=== PATIENT | female | born 1955 | race African-American/Black ===

== ENCOUNTER 2025-03-24 22:16 | Inpatient (IN) | payer MEDICAID ==
[~2025-03-24] VITALS: Ht 157.5 cm; Wt 66.2 kg
[2025-03-24] MEDS: SODIUM CHLORIDE 0.9% 1,000 ML IV ONE (23:27)
[2025-03-24] MEDS: SODIUM CHLORIDE 0.9% (SEPSIS BOLUS) IV ONE (23:29)
[2025-03-24] MEDS: PIPERACILLIN/TAZO 3.375G/50ML 50 ML IV ONE (23:29)
[2025-03-25] VITALS (94 sets, daily range): BP systolic 49–184; BP diastolic 25–114; PULSE 43–97; RESP 15–33; TEMP 35.028–37.8; O2SAT 46–100
[2025-03-25 00:02] LABS: BASOPHILS % 0.2 % (0.0-2.0); EOSINOPHILS % 0.0 % (0.0-5.0); HEMATOCRIT. 33.3 % (36.0-48.0); HEMOGLOBIN. 9.7 g/dL (12.0-16.0); LYMPHOCYTES % 12.3 % (20.0-50.0); MEAN PLATELET VOLUME 10.9 fl (7.4-10.4); MONOCYTES % 5.7 % (2.0-8.0); NEUTROPHILS % 81.8 % (40.0-76.0); PLATELET 213 x1000/uL (130-400); RED BLOOD CELL COUNT 3.37 mill/uL (4.2-5.4); RED CELL DISTRIBUTION WIDTH 17.9 % (11.6-14.6)
[2025-03-25] MEDS: VANCOMYCIN 1G PREMIX 200 ML IV ONE (00:08)
[2025-03-25 00:17] LABS: ASPARTATE AMINOTRANSFERASE 34 IU/L (<34); BILIRUBIN DIRECT 0.2 mg/dL (<=3.0)
[2025-03-25 00:18] LABS: BILIRUBIN TOTAL 0.5 mg/dL (0.1-1.0); PROTEIN TOTAL 7.1 g/dL (6.0-8.3)
[2025-03-25 00:19] LABS: BG BASE EXCESS -16.2 mmol/L (-2.0-3.0); BG CARBOXYHEMOGLOBIN 4.7 % (0.5-1.5); BG DEOXYHEMOGLOBIN 0.3 % (0.0-5.0); BG FLOW(L/min) 3.00 L/min; BG HCO3 ACT 8.7 mmol/L (21.0-28.0); BG METHEMOGLOBIN 0.3 % (0.5-1.5); BG OXYGEN SATURATION 99.7 % (94.0-98.0); BG OXYHEMOGLOBIN 94.7 % (94.0-98.0); BG PCO2 17.8 mmHg (32.0-45.0); BG PH 7.309 (7.350-7.450); BG PO2 190.5 mmHg (83.0-108.0); BG TOTAL HEMOGLOBIN 5.0 g/dL (12.0-16.0); BG VENT MODE NASAL CANNULA
[2025-03-25 00:25] LABS: CREATININE 10.9 mg/dL (0.6-1.0)
[2025-03-25 00:27] LABS: UREA NITROGEN BLOOD 191 mg/dL (9-23)
[2025-03-25 00:36] LABS: TROPONIN I HIGH SENSITIVITY 3313 ng/L (3.0-34)
[2025-03-25] MEDS: CALCIUM GLUCONATE 100MG/ML 10ML VIAL IV SCH (00:45)
[2025-03-25] MEDS: DEXTROSE 50% WATER 50ML SYRINGE IV SCH ×2 (00:48→03:17)
[2025-03-25] MEDS: INSULIN REGULAR (HUMULIN R) 1000UNITS/10ML VIAL IV SCH ×2 (00:51→03:18)
[2025-03-25] MEDS: SODIUM BICARBONATE 150 MEQ in DEXTROSE 5% WATER 850 ML IV SCH (00:55)
[2025-03-25] MEDS: SODIUM BICARBONATE 8.4% 50MEQ/50ML SYR IV SCH ×2 (00:57→03:18)
[2025-03-25] MEDS: SODIUM CHLORIDE 0.45% 1,000 ML IV ONE (00:59)
[2025-03-25] MEDS ORDERED: CLONIDINE 0.1MG TABLET PO PRN (01:00)
[2025-03-25] MEDS ORDERED: ONDANSETRON HCL 4MG/2ML INJ IV PRN (01:00)
[2025-03-25] MEDS ORDERED: SODIUM BICARBONATE 8.4% 50MEQ/50ML VIAL IV SCH (01:00)
[2025-03-25] MEDS ORDERED: DOCUSATE SODIUM 100MG CAPSULE PO PRN (01:00)
[2025-03-25] MEDS ORDERED: GUAIFENESIN 200MG/10ML SUGAR FREE UDC PO PRN (01:00)
[2025-03-25 01:24] LABS: TROPONIN I HIGH SENSITIVITY 3421 ng/L (3.0-34)
[2025-03-25] MEDS: ALBUTEROL (0.5%) 2.5MG/0.5ML NEB HHN SCH (01:34)
[2025-03-25] MEDS: NOREPINEPHRINE 8MG/250ML PMX 250 ML IV SCH (01:38)
[2025-03-25] MEDS: DEXTROSE 5% WATER 1,000 ML IV SCH (02:00)
[2025-03-25] MEDS: ASPIRIN 325MG EC TABLET PO SCH (02:00)
[2025-03-25] MEDS ORDERED: VECURONIUM BROMIDE 10 MG/VIAL IV SCH (02:00)
[2025-03-25] MEDS ORDERED: ETOMIDATE 2MG/ML 10ML VIAL IV SCH (02:00)
[2025-03-25] MEDS ORDERED: NITROGLYCERIN 0.4MG TABLET SL SL PRN (02:30)
[2025-03-25] MEDS ORDERED: EPINEPHRINE 5 MG in SODIUM CHLORIDE 0.9% 245 ML IV PRN (02:30)
[2025-03-25] MEDS: EPINEPHRINE 10 MG in SODIUM CHLORIDE 0.9% 240 ML IV PRN (02:50)
[2025-03-25] MEDS: LACTULOSE 20G/30ML UDC PO SCH (03:00)
[2025-03-25] MEDS ORDERED: HEPARIN 25,000 UNITS PREMIX 250 ML IV SCH ×2 (03:00)
[2025-03-25] MEDS: DOPAMINE 400MG/250ML PREMIX 250 ML IV PRN (03:17)
[2025-03-25 04:08] LABS: BG BASE EXCESS -8.4 mmol/L (-2.0-3.0); BG CARBOXYHEMOGLOBIN 1.4 % (0.5-1.5); BG DEOXYHEMOGLOBIN 0.3 % (0.0-5.0); BG FRACTION INSPIRED OXYGEN 100; BG HCO3 ACT 13.6 mmol/L (21.0-28.0); BG METHEMOGLOBIN 0.3 % (0.5-1.5); BG OXYGEN SATURATION 99.7 % (94.0-98.0); BG OXYHEMOGLOBIN 98.0 % (94.0-98.0); BG PCO2 19.7 mmHg (32.0-45.0); BG PEEP (cmH2O) 5.0 cmH2O; BG PH 7.458 (7.350-7.450); BG PO2 575.3 mmHg (83.0-108.0); BG SAMPLE SITE RIGHT RADIAL; BG TIDAL VOLUME(mL) 450.0 mL; BG TOTAL HEMOGLOBIN 10.5 g/dL (12.0-16.0); BG VENT MODE VENT - AC; BG VENT RATE 22.0 set
[2025-03-25] MEDS: HEPARIN 60 UNITS/KG BOLUS IV SCH (04:35)
[2025-03-25] MEDS: HEPARIN 25,000 UNITS PREMIX 250 ML IV SCH (04:39)
[2025-03-25] MEDS: HEPARIN SODIUM 1,000 UNIT/1ML VIAL IV SCH (05:04)
[2025-03-25] MEDS: PROPOFOL 10MG/ML 100ML 100 ML IV PRN (07:14)
[2025-03-25 07:40] LABS: CREATINE KINASE MB FRACTION 35.8 ng/mL (0.5-3.6)
[2025-03-25 08:07] LABS: CREATININE 10.3 mg/dL (0.6-1.0); UREA NITROGEN BLOOD 183.0 mg/dL (9-23)
[2025-03-25 08:10] LABS: TROPONIN I HIGH SENSITIVITY 5208.0 ng/L (3.0-34)
[2025-03-25] MEDS ORDERED: DEXTROSE 50% WATER 50ML SYRINGE IV PRN (08:15)
[2025-03-25] MEDS: PANTOPRAZOLE SODIUM 40 MG/VIAL IV SCH (08:35)
[2025-03-25] MEDS: BLOOD SUGAR DIAGNOSTIC STRIP TEST SCH ×2 (08:36→13:39)
[2025-03-25] MEDS: INSULIN LISPRO 100 UNITS/ML SUBCUT SCH ×2 (08:36→13:42)
[2025-03-25] MEDS: SODIUM CHLORIDE 0.45% 1,000 ML IV SCH (08:38)
[2025-03-25 08:47] LABS: CLARITY URINE TURBID (CLEAR); COLOR URINE ORANGE (YELLOW); GLUCOSE URINE 1+ (NEGATIVE); KETONES URINE NEGATIVE (NEGATIVE); LEUKOCYTE ESTERASE URINE 3+ (NEGATIVE); NITRITE URINE POSITIVE (NEGATIVE); OCCULT BLOOD URINE 3+ (NEGATIVE); PH URINE 7.0 (4.5-8.0); PROTEIN URINE 3+ (NEGATIVE); SPECIFIC GRAVITY URINE 1.015 (1.005-1.030); UROBILINOGEN URINE 0.2 E.U./dL (0.2-1.0)
[2025-03-25 08:47] LABS: HEPATITIS A AB IGM NEGATIVE (Negative)
[2025-03-25 08:48] LABS: HEPATITIS B CORE AB IGM NEGATIVE (Negative)
[2025-03-25 08:49] LABS: HEPATITIS C AB NON REACTIVE (Neg) (Negative)
[2025-03-25] MEDS ORDERED: CLOPIDOGREL 75MG TABLET PO SCH (09:00)
[2025-03-25] MEDS ORDERED: DOXYCYCLINE HYCLATE 100 MG/VIAL IV SCH (09:00)
[2025-03-25 09:07] LABS: *AMPHETAMINES SCREEN URINE NEGATIVE (NEGATIVE); *BARBITURATES SCREEN URINE NEGATIVE (NEGATIVE); *BENZODIAZEPINES SCREEN URINE NEGATIVE (NEGATIVE); *COCAINE SCREEN URINE NEGATIVE (NEGATIVE); METHADONE URINE SCREEN NEGATIVE (NEGATIVE)
[2025-03-25 09:08] LABS: CANNABINOID URINE SCREEN NEGATIVE (NEGATIVE); ECSTASY MDMA SCREEN URINE NEGATIVE (NEGATIVE); OPIATES URINE SCREEN NEGATIVE (NEGATIVE); PHENCYCLIDINE URINE SCREEN NEGATIVE (NEGATIVE)
[2025-03-25 09:10] LABS: BG BASE EXCESS -13.5 mmol/L (-2.0-3.0); BG CARBOXYHEMOGLOBIN 2.5 % (0.5-1.5); BG DEOXYHEMOGLOBIN 0.3 % (0.0-5.0); BG FRACTION INSPIRED OXYGEN 50; BG HCO3 ACT 10.6 mmol/L (21.0-28.0); BG METHEMOGLOBIN 0.2 % (0.5-1.5); BG OXYGEN SATURATION 99.7 % (94.0-98.0); BG OXYHEMOGLOBIN 97.0 % (94.0-98.0); BG PCO2 20.4 mmHg (32.0-45.0); BG PEEP (cmH2O) 5.0 cmH2O; BG PH 7.332 (7.350-7.450); BG PO2 253.4 mmHg (83.0-108.0); BG SAMPLE SITE LEFT RADIAL; BG TIDAL VOLUME(mL) 500.0 mL; BG TOTAL HEMOGLOBIN 10.4 g/dL (12.0-16.0); BG VENT MODE VENT - AC; BG VENT RATE 16.0 set
[2025-03-25] MEDS: EPINEPHRINE 20 MG in SODIUM CHLORIDE 0.9% 480 ML IV PRN (09:48)
[2025-03-25 09:56] LABS: WBC URINE TNTC /hpf (0-2)
[2025-03-25 09:57] LABS: BACTERIA URINE 4+; SQUAMOUS EPITHELIAL CELL URINE NONE SEEN /lpf (RARE/1+)
[2025-03-25 09:58] LABS: RBC URINE TNTC /hpf (0-2)
[2025-03-25] MEDS ORDERED: HEPARIN BOLUS PRN aPTT <30 IV (10:30)
[2025-03-25] MEDS ORDERED: HEPARIN BOLUS PRN aPTT 30-44 IV (10:30)
[2025-03-25] MEDS: PHENYLEPHRINE 50MG/250ML PMX 250 ML IV PRN (10:40)
[2025-03-25] MEDS ORDERED: PHENYLEPHRINE 50MG/250ML PMX 250 ML IV PRN (11:00)
[2025-03-25] MEDS: CALCIUM GLUCONATE 1GM PREMIX 50 ML IV NR (11:18)
[2025-03-25] MEDS: PIPERACILLIN/TAZO 3.375G/50ML 50 ML IV SCH (11:18)
[2025-03-25] MEDS: DOXYCYCLINE 100MG/100ML 100 ML IV SCH (11:18)
[2025-03-25 11:19] LABS: INR 1.2
[2025-03-25] MEDS ORDERED: VASOPRESSIN 20 UNIT in SODIUM CHLORIDE 0.9% 99 ML IV PRN (11:30)
[2025-03-25 11:43] LABS: CREATININE 6.8 mg/dL (0.6-1.0); UREA NITROGEN BLOOD 114.0 mg/dL (9-23)
[2025-03-25 11:47] LABS: TROPONIN I HIGH SENSITIVITY 11272 ng/L (3.0-34)
[2025-03-25] MEDS: INSULIN LISPRO 100 UNITS/ML SUBCUT NR (11:53)
[2025-03-25 13:40] LABS: TRIGLYCERIDE 137 mg/dL (0-150)
[2025-03-25 13:41] LABS: LDL CHOLESTEROL 53 mg/dL (5-100)
[2025-03-25] MEDS: KCL 20MEQ/100ML PREMIX 100 ML IV SCH (14:44)
[2025-03-25] MEDS: DEXTROSE 50% WATER 50ML SYRINGE IV PRN (18:45)
[2025-03-25 20:57] LABS: CREATINE KINASE MB FRACTION 35.3 ng/mL (0.5-3.6)
[2025-03-25 21:11] LABS: CREATININE 8.2 mg/dL (0.6-1.0); TROPONIN I HIGH SENSITIVITY 24546.0 ng/L (3.0-34); UREA NITROGEN BLOOD 141.0 mg/dL (9-23)
[2025-03-25] MEDS: ATORVASTATIN CALCIUM 40MG TABLET PO SCH (21:22)
[2025-03-25] MEDS: HYDROCORTISONE SOD SUCCINATE 100 MG/2 ML VIAL IV SCH (21:35)
[2025-03-25] MEDS: MIDAZOLAM 100MG/100ML PMX 100 ML IV PRN (23:14)
[2025-03-25] MEDS: FENTANYL 2500MCG/250ML PMX 250 ML IV PRN (23:14)
[2025-03-26] VITALS (104 sets, daily range): BP systolic 80–186; BP diastolic 56–122; PULSE 38–79; RESP 13–25; TEMP 36.1–37.1; O2SAT 96–100
[2025-03-26 05:54] LABS: PROTEIN TOTAL 6.2 g/dL (6.0-8.3); TRIGLYCERIDE 88 mg/dL (0-150)
[2025-03-26 05:55] LABS: LDL CHOLESTEROL 43 mg/dL (5-100)
[2025-03-26 05:56] LABS: ASPARTATE AMINOTRANSFERASE 78 IU/L (<34); BILIRUBIN DIRECT 0.3 mg/dL (<=3.0); PHOSPHORUS 3.3 mg/dL (2.5-4.9)
[2025-03-26 05:57] LABS: BILIRUBIN TOTAL 0.7 mg/dL (0.1-1.0)
[2025-03-26 06:20] LABS: T4 FREE < 0.10 ng/dL (0.89-1.76)
[2025-03-26 06:55] LABS: CREATININE 7.5 mg/dL (0.6-1.0); UREA NITROGEN BLOOD 125 mg/dL (9-23)
[2025-03-26 10:11] LABS: BASOPHILS % 0.1 % (0.0-2.0); EOSINOPHILS % 0.1 % (0.0-5.0); HEMATOCRIT. 32.7 % (36.0-48.0); HEMOGLOBIN. 10.1 g/dL (12.0-16.0); LYMPHOCYTES % 10.8 % (20.0-50.0); MEAN PLATELET VOLUME 10.1 fl (7.4-10.4); MONOCYTES % 2.7 % (2.0-8.0); NEUTROPHILS % 86.3 % (40.0-76.0); PLATELET 100 x1000/uL (130-400); RED BLOOD CELL COUNT 3.46 mill/uL (4.2-5.4); RED CELL DISTRIBUTION WIDTH 17.3 % (11.6-14.6)
[2025-03-26 10:32] LABS: TROPONIN I HIGH SENSITIVITY 16830 ng/L (3.0-34)
[2025-03-26] MEDS: EPINEPHRINE 10 MG in SODIUM CHLORIDE 0.9% 240 ML IV PRN (14:16)
[2025-03-26] MEDS ORDERED: HYDROCORTISONE SOD SUCCINATE 100 MG/2 ML VIAL IV SCH (16:00)
[2025-03-26] MEDS: LEVOTHYROXINE SODIUM 100 MCG/ VIAL IV NR (18:37)
[2025-03-27] VITALS (111 sets, daily range): BP systolic 75–153; BP diastolic 54–133; PULSE 51–96; RESP 5–21; TEMP 36.114–36.78072; O2SAT 98–100
[2025-03-27 06:01] LABS: BASOPHILS % 0.1 % (0.0-2.0); EOSINOPHILS % 0.1 % (0.0-5.0); HEMATOCRIT. 29.0 % (36.0-48.0); HEMOGLOBIN. 8.5 g/dL (12.0-16.0); LYMPHOCYTES % 9.3 % (20.0-50.0); MEAN PLATELET VOLUME 10.2 fl (7.4-10.4); MONOCYTES % 4.6 % (2.0-8.0); NEUTROPHILS % 85.9 % (40.0-76.0); PLATELET 101 x1000/uL (130-400); RED BLOOD CELL COUNT 2.96 mill/uL (4.2-5.4); RED CELL DISTRIBUTION WIDTH 16.8 % (11.6-14.6)
[2025-03-27 06:21] LABS: PHOSPHORUS 4.3 mg/dL (2.5-4.9)
[2025-03-27 07:07] LABS: CREATININE 6.2 mg/dL (0.6-1.0); UREA NITROGEN BLOOD 104 mg/dL (9-23)
[2025-03-27 07:08] LABS: TROPONIN I HIGH SENSITIVITY 5718 ng/L (3.0-34)
[2025-03-27] MEDS: LEVOTHYROXINE SODIUM 100 MCG/ VIAL IV SCH (08:58)
[2025-03-27 10:54] LABS: BG BASE EXCESS -12.7 mmol/L (-2.0-3.0); BG CARBOXYHEMOGLOBIN 2.3 % (0.5-1.5); BG DEOXYHEMOGLOBIN 0.3 % (0.0-5.0); BG FRACTION INSPIRED OXYGEN 40; BG HCO3 ACT 11.1 mmol/L (21.0-28.0); BG METHEMOGLOBIN 0.2 % (0.5-1.5); BG OXYGEN SATURATION 99.7 % (94.0-98.0); BG OXYHEMOGLOBIN 97.2 % (94.0-98.0); BG PCO2 19.3 mmHg (32.0-45.0); BG PEEP (cmH2O) 5.0 cmH2O; BG PH 7.376 (7.350-7.450); BG PO2 190.3 mmHg (83.0-108.0); BG SAMPLE SITE RIGHT BRACHIAL; BG TIDAL VOLUME(mL) 450.0 mL; BG TOTAL HEMOGLOBIN 7.5 g/dL (12.0-16.0); BG VENT MODE VENT - AC; BG VENT RATE 16.0 set
[2025-03-27] MEDS: SODIUM BICARBONATE 8.4% 50MEQ/50ML SYR IV SCH (11:16)
[2025-03-27] MEDS: CALCIUM GLUCONATE 1GM PREMIX 50 ML IV SCH (16:17)
[2025-03-27] MEDS ORDERED: VANCOMYCIN 750MG/150ML (BAXTER) IV SCH (18:00)
[2025-03-28] VITALS (113 sets, daily range): BP systolic 51–187; BP diastolic 38–141; PULSE 52–87; RESP 11–21; TEMP 36.2–36.5; O2SAT 97–100
[2025-03-28 06:09] LABS: HEMATOCRIT. 24.2 % (36.0-48.0); HEMOGLOBIN. 7.6 g/dL (12.0-16.0); MEAN PLATELET VOLUME 10.4 fl (7.4-10.4); PLATELET 93 x1000/uL (130-400); RED BLOOD CELL COUNT 2.67 mill/uL (4.2-5.4); RED CELL DISTRIBUTION WIDTH 15.9 % (11.6-14.6)
[2025-03-28 06:23] LABS: UREA NITROGEN BLOOD 70 mg/dL (9-23)
[2025-03-28 06:25] LABS: ASPARTATE AMINOTRANSFERASE 69 IU/L (<34); BILIRUBIN DIRECT 0.3 mg/dL (<=3.0); PHOSPHORUS 4.0 mg/dL (2.5-4.9)
[2025-03-28 06:26] LABS: BILIRUBIN TOTAL 0.5 mg/dL (0.1-1.0); PROTEIN TOTAL 5.5 g/dL (6.0-8.3)
[2025-03-28 06:27] LABS: CREATININE 4.0 mg/dL (0.6-1.0)
[2025-03-28] MEDS: KCL 20MEQ/100ML PREMIX 100 ML IV SCH (09:36)
[2025-03-28 10:37] LABS: BG BASE EXCESS -6.5 mmol/L (-2.0-3.0); BG CARBOXYHEMOGLOBIN 2.0 % (0.5-1.5); BG DEOXYHEMOGLOBIN 0.3 % (0.0-5.0); BG FRACTION INSPIRED OXYGEN 40; BG HCO3 ACT 14.4 mmol/L (21.0-28.0); BG METHEMOGLOBIN 0.2 % (0.5-1.5); BG OXYGEN SATURATION 99.7 % (94.0-98.0); BG OXYHEMOGLOBIN 97.5 % (94.0-98.0); BG PCO2 16.4 mmHg (32.0-45.0); BG PEEP (cmH2O) 5.0 cmH2O; BG PH 7.562 (7.350-7.450); BG PO2 176.7 mmHg (83.0-108.0); BG SAMPLE SITE RIGHT BRACHIAL; BG TIDAL VOLUME(mL) 450.0 mL; BG TOTAL HEMOGLOBIN 8.0 g/dL (12.0-16.0); BG VENT MODE VENT - AC; BG VENT RATE 16.0 set
[2025-03-28 11:40] LABS: BAND% 14.0 % (1.0-6.0); LYMPHOCYTES % MANUAL 7.0 % (20.0-60.0); METAMYELOCYTES % 4.0 % (0-0); MONOCYTES % MANUAL 2.0 % (2.0-8.0); NEUTROPHILS % MANUAL 73.0 % (45.0-75.0); PLATELET ESTIMATE SLIGHTLY DECREASED
[2025-03-28 14:36] LABS: BG BASE EXCESS -4.6 mmol/L (-2.0-3.0); BG CARBOXYHEMOGLOBIN 2.2 % (0.5-1.5); BG DEOXYHEMOGLOBIN 0.3 % (0.0-5.0); BG FRACTION INSPIRED OXYGEN 40; BG HCO3 ACT 18.5 mmol/L (21.0-28.0); BG METHEMOGLOBIN 0.2 % (0.5-1.5); BG OXYGEN SATURATION 99.7 % (94.0-98.0); BG OXYHEMOGLOBIN 97.3 % (94.0-98.0); BG PCO2 26.0 mmHg (32.0-45.0); BG PEEP (cmH2O) 5.0 cmH2O; BG PH 7.469 (7.350-7.450); BG PO2 159.7 mmHg (83.0-108.0); BG SAMPLE SITE RIGHT RADIAL; BG TIDAL VOLUME(mL) 400.0 mL; BG TOTAL HEMOGLOBIN 7.2 g/dL (12.0-16.0); BG VENT MODE VENT - AC; BG VENT RATE 12.0 set
[2025-03-29] VITALS (83 sets, daily range): BP systolic 57–132; BP diastolic 46–81; PULSE 62–101; RESP 15–36; TEMP 36.6–36.9; O2SAT 98–100
[2025-03-29 06:47] LABS: PLATELET 75 x1000/uL (130-400); RED BLOOD CELL COUNT 2.54 mill/uL (4.2-5.4); RED CELL DISTRIBUTION WIDTH 16.0 % (11.6-14.6)
[2025-03-29 07:01] LABS: CREATININE 3.8 mg/dL (0.6-1.0); UREA NITROGEN BLOOD 62 mg/dL (9-23)
[2025-03-29 07:03] LABS: PHOSPHORUS 4.2 mg/dL (2.5-4.9)
[2025-03-29] MEDS ORDERED: POTASSIUM CHLORIDE 20 MEQ in DEXT 5% WATER 90 ML IV ONE (07:30)
[2025-03-29 07:37] LABS: T4 FREE 1.06 ng/dL (0.89-1.76)
[2025-03-29] MEDS: KCL 20MEQ/100ML PREMIX 100 ML IV NR (08:38)
[2025-03-29] MEDS ORDERED: LEVOTHYROXINE SODIUM 100 MCG/ VIAL IV SCH (09:00)
[2025-03-29 09:17] LABS: BG BASE EXCESS -5.5 mmol/L (-2.0-3.0); BG CARBOXYHEMOGLOBIN 2.7 % (0.5-1.5); BG DEOXYHEMOGLOBIN 0.3 % (0.0-5.0); BG FRACTION INSPIRED OXYGEN 40; BG HCO3 ACT 16.3 mmol/L (21.0-28.0); BG METHEMOGLOBIN 0.3 % (0.5-1.5); BG OXYGEN SATURATION 99.7 % (94.0-98.0); BG OXYHEMOGLOBIN 96.7 % (94.0-98.0); BG PCO2 19.6 mmHg (32.0-45.0); BG PEEP (cmH2O) 5.0 cmH2O; BG PH 7.538 (7.350-7.450); BG PO2 177.9 mmHg (83.0-108.0); BG SAMPLE SITE RIGHT RADIAL; BG TIDAL VOLUME(mL) 400.0 mL; BG TOTAL HEMOGLOBIN 6.9 g/dL (12.0-16.0); BG VENT MODE VENT - AC; BG VENT RATE 12.0 set
[2025-03-29] MEDS: IPRATROPIUM/ALBUTEROL 0.5-3(2.5)MG/3ML NEB HHN PRN (10:02)
[2025-03-29] MEDS: LEVOTHYROXINE SODIUM 100 MCG/ VIAL IV SCH (11:02)
[2025-03-29] MEDS: NOREPINEPHRINE 8MG/250ML PMX 250 ML IV PRN (17:16)
[2025-03-29 18:10] LABS: BG BASE EXCESS -5.4 mmol/L (-2.0-3.0); BG CARBOXYHEMOGLOBIN 1.8 % (0.5-1.5); BG DEOXYHEMOGLOBIN 0.3 % (0.0-5.0); BG FRACTION INSPIRED OXYGEN 40; BG HCO3 ACT 16.4 mmol/L (21.0-28.0); BG METHEMOGLOBIN 0.2 % (0.5-1.5); BG OXYGEN SATURATION 99.7 % (94.0-98.0); BG OXYHEMOGLOBIN 97.7 % (94.0-98.0); BG PCO2 20.6 mmHg (32.0-45.0); BG PEEP (cmH2O) 5.0 cmH2O; BG PH 7.519 (7.350-7.450); BG PO2 176.9 mmHg (83.0-108.0); BG SAMPLE SITE RIGHT RADIAL; BG TIDAL VOLUME(mL) 400.0 mL; BG TOTAL HEMOGLOBIN 8.0 g/dL (12.0-16.0); BG TOTAL RESPIRATORY RATE 33 b/min; BG VENT MODE VENT - SIMV; BG VENT RATE 12.0 set
[2025-03-30] VITALS (107 sets, daily range): BP systolic 83–146; BP diastolic 56–86; PULSE 64–91; RESP 16–32; TEMP 35.4–37.1; O2SAT 96–100
[2025-03-30 06:44] LABS: PLATELET 73 x1000/uL (130-400); RED BLOOD CELL COUNT 2.64 mill/uL (4.2-5.4); RED CELL DISTRIBUTION WIDTH 16.4 % (11.6-14.6)
[2025-03-30 06:54] LABS: CREATININE 3.8 mg/dL (0.6-1.0)
[2025-03-30 06:55] LABS: UREA NITROGEN BLOOD 71 mg/dL (9-23)
[2025-03-30 06:57] LABS: PHOSPHORUS 4.1 mg/dL (2.5-4.9)
[2025-03-30] MEDS: KCL 20MEQ/100ML PREMIX 100 ML IV ONE (09:08)
[2025-03-30 09:18] LABS: BG BASE EXCESS -6.2 mmol/L (-2.0-3.0); BG CARBOXYHEMOGLOBIN 2.1 % (0.5-1.5); BG DEOXYHEMOGLOBIN 0.1 % (0.0-5.0); BG FRACTION INSPIRED OXYGEN 40; BG HCO3 ACT 16.0 mmol/L (21.0-28.0); BG METHEMOGLOBIN 0.3 % (0.5-1.5); BG OXYGEN SATURATION 99.9 % (94.0-98.0); BG OXYHEMOGLOBIN 97.5 % (94.0-98.0); BG PCO2 20.9 mmHg (32.0-45.0); BG PEEP (cmH2O) 5.0 cmH2O; BG PH 7.503 (7.350-7.450); BG PO2 167.2 mmHg (83.0-108.0); BG SAMPLE SITE RIGHT RADIAL; BG TIDAL VOLUME(mL) 400.0 mL; BG TOTAL HEMOGLOBIN 7.2 g/dL (12.0-16.0); BG VENT MODE VENT - SIMV; BG VENT RATE 12.0 set
[2025-03-30] MEDS: SODIUM BICARBONATE 8.4% 50MEQ/50ML SYR IV NR (11:04)
[2025-03-30] MEDS: POTASSIUM CHLORIDE 20MEQ/PACKET PO NR (11:04)
[2025-03-30] MEDS: FAMOTIDINE 20MG/2ML VIAL IV SCH (11:05)
[2025-03-30] MEDS: CALCIUM GLUCONATE 100MG/ML 10ML VIAL IV NR (15:26)
[2025-03-30] MEDS: KCL 20MEQ/100ML PREMIX 100 ML IV SCH (17:15)
[2025-03-30] MEDS: DEXTROSE 5% WATER 1,000 ML IV SCH (17:24)
[2025-03-30] MEDS: SENNOSIDES/DOCUSATE SOD 8.6/50MG TABLET NG SCH (20:40)
[2025-03-31] VITALS (105 sets, daily range): BP systolic 92–181; BP diastolic 64–87; PULSE 71–92; RESP 21–42; TEMP 36.6–37.2; O2SAT 75–100
[2025-03-31 07:58] LABS: BILIRUBIN TOTAL 0.4 mg/dL (0.1-1.0); CREATININE 3.2 mg/dL (0.6-1.0); UREA NITROGEN BLOOD 69 mg/dL (9-23)
[2025-03-31 08:00] LABS: ASPARTATE AMINOTRANSFERASE 109 IU/L (<34); BILIRUBIN DIRECT 0.2 mg/dL (<=3.0); PHOSPHORUS 3.1 mg/dL (2.5-4.9)
[2025-03-31 08:01] LABS: PROTEIN TOTAL 5.5 g/dL (6.0-8.3)
[2025-03-31 08:05] LABS: FOLIC ACID (FOLATE) SERUM 4.95 ng/mL (>5.38); VITAMIN B12 SERUM 569 pg/mL (211-911)
[2025-03-31 08:15] LABS: BASOPHILS % 0.1 % (0.0-2.0); EOSINOPHILS % 0.4 % (0.0-5.0); LYMPHOCYTES % 8.5 % (20.0-50.0); MEAN PLATELET VOLUME 10.3 fl (7.4-10.4); MONOCYTES % 3.6 % (2.0-8.0); NEUTROPHILS % 87.4 % (40.0-76.0); PLATELET 60 x1000/uL (130-400); RED BLOOD CELL COUNT 2.43 mill/uL (4.2-5.4); RED CELL DISTRIBUTION WIDTH 16.4 % (11.6-14.6)
[2025-03-31 08:33] LABS: HEMOGLOBIN. 7.0 g/dL (12.0-16.0)
[2025-03-31 08:35] LABS: HEMATOCRIT. 21.8 % (36.0-48.0)
[2025-03-31] MEDS: FOLIC ACID 1MG TABLET PO SCH (08:56)
[2025-03-31] MEDS: FAMOTIDINE 20MG/2ML VIAL IV SCH (08:58)
[2025-03-31] MEDS: SODIUM BICARBONATE 8.4% 50MEQ/50ML SYR IV NR (09:20)
[2025-03-31 09:58] LABS: SODIUM URINE RANDOM 42.0 mEq/L
[2025-03-31 10:05] LABS: CREATININE URINE RANDOM 52.2 mg/dL; UREA NITROGEN URINE RANDOM 553.0 mg/dL
[2025-03-31] MEDS ORDERED: METHYLPREDNISOLONE DOSE PACK XX SCH (12:00)
[2025-03-31] MEDS: IRON SUCROSE COMPLEX 100 MG/5 ML ML IV SCH (12:55)
[2025-03-31 13:07] LABS: BG BASE EXCESS -2.9 mmol/L (-2.0-3.0); BG CARBOXYHEMOGLOBIN 1.7 % (0.5-1.5); BG DEOXYHEMOGLOBIN 0.3 % (0.0-5.0); BG FLOW(L/min) 4.00 L/min; BG FRACTION INSPIRED OXYGEN 36; BG HCO3 ACT 18.9 mmol/L (21.0-28.0); BG METHEMOGLOBIN 0.2 % (0.5-1.5); BG OXYGEN SATURATION 99.7 % (94.0-98.0); BG OXYHEMOGLOBIN 97.8 % (94.0-98.0); BG PCO2 22.0 mmHg (32.0-45.0); BG PH 7.551 (7.350-7.450); BG PO2 185.8 mmHg (83.0-108.0); BG SAMPLE SITE RIGHT RADIAL; BG TOTAL HEMOGLOBIN 7.2 g/dL (12.0-16.0); BG VENT MODE NASAL CANNULA
[2025-03-31 13:12] LABS: BG PEEP (cmH2O) 5.0 cmH2O; BG TIDAL VOLUME(mL) 400.0 mL; BG VENT RATE 12.0 set
[2025-03-31 17:07] LABS: HEMATOCRIT. 21.8 % (36.0-48.0); MEAN PLATELET VOLUME 10.4 fl (7.4-10.4); PLATELET 73 x1000/uL (130-400); RED BLOOD CELL COUNT 2.34 mill/uL (4.2-5.4); RED CELL DISTRIBUTION WIDTH 16.9 % (11.6-14.6)
[2025-03-31 17:16] LABS: HEMOGLOBIN. 6.9 g/dL (12.0-16.0)
[2025-03-31 18:45] LABS: BAND% 20.0 % (1.0-6.0); LYMPHOCYTES % MANUAL 12.0 % (20.0-60.0); MONOCYTES % MANUAL 1.0 % (2.0-8.0); NEUTROPHILS % MANUAL 67.0 % (45.0-75.0); PLATELET ESTIMATE SLIGHTLY DECREASED
[2025-03-31] MEDS: CEFTRIAXONE 2GM/50ML 50 ML IV SCH (21:52)
[2025-04-01] VITALS (102 sets, daily range): BP systolic 95–152; BP diastolic 62–93; PULSE 62–84; RESP 14–34; TEMP 36.3–36.8; O2SAT 76–100
[2025-04-01 07:06] LABS: HEMATOCRIT. 26.0 % (36.0-48.0); HEMOGLOBIN. 8.6 g/dL (12.0-16.0); MEAN PLATELET VOLUME 10.8 fl (7.4-10.4); PLATELET 61 x1000/uL (130-400); RED BLOOD CELL COUNT 2.90 mill/uL (4.2-5.4); RED CELL DISTRIBUTION WIDTH 15.8 % (11.6-14.6)
[2025-04-01 07:32] LABS: UREA NITROGEN BLOOD 68 mg/dL (9-23)
[2025-04-01 07:33] LABS: CREATININE 3.0 mg/dL (0.6-1.0)
[2025-04-01 07:35] LABS: ASPARTATE AMINOTRANSFERASE 102 IU/L (<34); BILIRUBIN DIRECT 0.2 mg/dL (<=3.0); BILIRUBIN TOTAL 0.3 mg/dL (0.1-1.0); PHOSPHORUS 4.2 mg/dL (2.5-4.9); PROTEIN TOTAL 5.4 g/dL (6.0-8.3)
[2025-04-01] MEDS: KCL 20MEQ/100ML PREMIX 100 ML IV SCH (08:55)
[2025-04-01] MEDS: MAGNESIUM 1 G PREMIX 100 ML IV ONE (08:55)
[2025-04-01] MEDS: POTASSIUM CHLORIDE 20MEQ TABLET SR PO SCH (08:56)
[2025-04-01] MEDS: PANTOPRAZOLE SODIUM 40 MG/VIAL IV SCH (08:56)
[2025-04-01 11:13] LABS: BG BASE EXCESS -3.1 mmol/L (-2.0-3.0); BG CARBOXYHEMOGLOBIN 1.8 % (0.5-1.5); BG DEOXYHEMOGLOBIN 0.4 % (0.0-5.0); BG FRACTION INSPIRED OXYGEN 40; BG HCO3 ACT 18.9 mmol/L (21.0-28.0); BG METHEMOGLOBIN 0.3 % (0.5-1.5); BG OXYGEN SATURATION 99.6 % (94.0-98.0); BG OXYHEMOGLOBIN 97.5 % (94.0-98.0); BG PCO2 23.1 mmHg (32.0-45.0); BG PEEP (cmH2O) 5.0 cmH2O; BG PH 7.531 (7.350-7.450); BG PO2 180.3 mmHg (83.0-108.0); BG SAMPLE SITE LEFT RADIAL; BG TIDAL VOLUME(mL) 400.0 mL; BG TOTAL HEMOGLOBIN 7.5 g/dL (12.0-16.0); BG VENT MODE VENT - SIMV; BG VENT RATE 12.0 set
[2025-04-01] MEDS: POTASSIUM CHLORIDE 20MEQ/PACKET PO SCH (11:31)
[2025-04-01 21:00] LABS: PLATELET 60 x1000/uL (130-400); RED BLOOD CELL COUNT 2.77 mill/uL (4.2-5.4); RED CELL DISTRIBUTION WIDTH 15.8 % (11.6-14.6)
[2025-04-01 21:13] LABS: CREATININE 2.7 mg/dL (0.6-1.0); UREA NITROGEN BLOOD 64.0 mg/dL (9-23)
[2025-04-01] MEDS: EPOETIN ALFA-EPBX 4,000 UNITS/ML VIAL SUBCUT SCH (22:13)
[2025-04-01] MEDS: DEXT 10% WATER 1,000 ML IV SCH (23:12)
[2025-04-02] VITALS (69 sets, daily range): BP systolic 96–152; BP diastolic 61–88; PULSE 60–76; RESP 11–23; TEMP 36.7–37.3; O2SAT 96–100
[2025-04-02 07:06] LABS: BASOPHILS % 0.1 % (0.0-2.0); EOSINOPHILS % 0.5 % (0.0-5.0); HEMATOCRIT. 25.0 % (36.0-48.0); HEMOGLOBIN. 8.1 g/dL (12.0-16.0); LYMPHOCYTES % 8.6 % (20.0-50.0); MEAN PLATELET VOLUME 10.6 fl (7.4-10.4); MONOCYTES % 5.2 % (2.0-8.0); NEUTROPHILS % 85.6 % (40.0-76.0); PLATELET 61 x1000/uL (130-400); RED BLOOD CELL COUNT 2.75 mill/uL (4.2-5.4); RED CELL DISTRIBUTION WIDTH 16.6 % (11.6-14.6)
[2025-04-02 07:15] LABS: CREATININE 2.6 mg/dL (0.6-1.0)
[2025-04-02 07:16] LABS: UREA NITROGEN BLOOD 59 mg/dL (9-23)
[2025-04-02 07:18] LABS: PHOSPHORUS 3.9 mg/dL (2.5-4.9)
[2025-04-02 08:38] LABS: BG BASE EXCESS -3.9 mmol/L (-2.0-3.0); BG CARBOXYHEMOGLOBIN 0.9 % (0.5-1.5); BG DEOXYHEMOGLOBIN 0.2 % (0.0-5.0); BG FRACTION INSPIRED OXYGEN 40; BG HCO3 ACT 18.1 mmol/L (21.0-28.0); BG METHEMOGLOBIN 0.3 % (0.5-1.5); BG OXYGEN SATURATION 99.8 % (94.0-98.0); BG OXYHEMOGLOBIN 98.6 % (94.0-98.0); BG PCO2 22.9 mmHg (32.0-45.0); BG PEEP (cmH2O) 5.0 cmH2O; BG PH 7.516 (7.350-7.450); BG PO2 182.7 mmHg (83.0-108.0); BG SAMPLE SITE LEFT RADIAL; BG TIDAL VOLUME(mL) 400.0 mL; BG TOTAL HEMOGLOBIN 8.3 g/dL (12.0-16.0); BG TOTAL RESPIRATORY RATE 21 b/min; BG VENT MODE VENT - SIMV; BG VENT RATE 12.0 set
[2025-04-02 14:47] LABS: BAND% 24.0 % (1.0-6.0); EOSINOPHILS % MANUAL 1.0 % (0.0-5.0); LYMPHOCYTES % MANUAL 7.0 % (20.0-60.0); MONOCYTES % MANUAL 1.0 % (2.0-8.0); NEUTROPHILS % MANUAL 67.0 % (45.0-75.0); NUCLEATED RED BLOOD CELLS 3 /100 WBC; PLATELET ESTIMATE DECREASED
[2025-04-02] MEDS: POTASSIUM CHLORIDE 20MEQ/PACKET NG SCH (15:15)
[2025-04-02] MEDS: IRON SUCROSE COMPLEX 100 MG/5 ML ML IV SCH (15:17)
[2025-04-02 20:44] LABS: CLARITY URINE TURBID (CLEAR); COLOR URINE RED (YELLOW); GLUCOSE URINE NEGATIVE (NEGATIVE); KETONES URINE NEGATIVE (NEGATIVE); LEUKOCYTE ESTERASE URINE 3+ (NEGATIVE); NITRITE URINE NEGATIVE (NEGATIVE); OCCULT BLOOD URINE 3+ (NEGATIVE); PH URINE 6.5 (4.5-8.0); PROTEIN URINE 2+ (NEGATIVE); SPECIFIC GRAVITY URINE 1.015 (1.005-1.030); UROBILINOGEN URINE 0.2 E.U./dL (0.2-1.0)
[2025-04-02 21:08] LABS: BACTERIA URINE 4+; RBC URINE TNTC /hpf (0-2); SQUAMOUS EPITHELIAL CELL URINE 1+ /lpf (RARE/1+); WBC URINE TNTC /hpf (0-2)
[2025-04-03] VITALS (95 sets, daily range): BP systolic 91–129; BP diastolic 57–99; PULSE 57–72; RESP 10–19; TEMP 36.5–37.4; O2SAT 99–100
[2025-04-03 07:16] LABS: CREATININE 2.3 mg/dL (0.6-1.0); UREA NITROGEN BLOOD 49.0 mg/dL (9-23)
[2025-04-03 07:27] LABS: PLATELET 63 x1000/uL (130-400); RED BLOOD CELL COUNT 2.51 mill/uL (4.2-5.4); RED CELL DISTRIBUTION WIDTH 16.0 % (11.6-14.6)
[2025-04-03] MEDS: BLOOD SUGAR DIAGNOSTIC STRIP TEST SCH (08:00)
[2025-04-03] MEDS: FERROUS SULFATE 325MG TABLET PO SCH (08:20)
[2025-04-03 08:33] LABS: BG BASE EXCESS -6.3 mmol/L (-2.0-3.0); BG CARBOXYHEMOGLOBIN 1.3 % (0.5-1.5); BG DEOXYHEMOGLOBIN 0.3 % (0.0-5.0); BG FRACTION INSPIRED OXYGEN 40; BG HCO3 ACT 15.6 mmol/L (21.0-28.0); BG METHEMOGLOBIN 0.3 % (0.5-1.5); BG OXYGEN SATURATION 99.7 % (94.0-98.0); BG OXYHEMOGLOBIN 98.1 % (94.0-98.0); BG PCO2 19.7 mmHg (32.0-45.0); BG PEEP (cmH2O) 5.0 cmH2O; BG PH 7.516 (7.350-7.450); BG PO2 190.4 mmHg (83.0-108.0); BG SAMPLE SITE RIGHT RADIAL; BG TIDAL VOLUME(mL) 400.0 mL; BG TOTAL HEMOGLOBIN 7.7 g/dL (12.0-16.0); BG VENT MODE VENT - SIMV; BG VENT RATE 12.0 set
[2025-04-03] MEDS ORDERED: LIDOCAINE HCL 1% 10 MG/ML 10ML VIAL ONE (08:34)
[2025-04-03] MEDS: POTASSIUM CHLORIDE 20MEQ TABLET SR PO NR (11:37)
[2025-04-03] MEDS: METOCLOPRAMIDE HCL 10MG/2ML VIAL IV PRN (15:03)
[2025-04-04] VITALS (89 sets, daily range): BP systolic 102–142; BP diastolic 59–109; PULSE 60–78; RESP 10–22; TEMP 37.2–37.3; O2SAT 93–100
[2025-04-04 06:37] LABS: BASOPHILS % 0.1 % (0.0-2.0); EOSINOPHILS % 0.5 % (0.0-5.0); HEMATOCRIT. 22.2 % (36.0-48.0); HEMOGLOBIN. 7.2 g/dL (12.0-16.0); LYMPHOCYTES % 7.7 % (20.0-50.0); MEAN PLATELET VOLUME 11.1 fl (7.4-10.4); MONOCYTES % 5.0 % (2.0-8.0); NEUTROPHILS % 86.7 % (40.0-76.0); PLATELET 69 x1000/uL (130-400); RED BLOOD CELL COUNT 2.43 mill/uL (4.2-5.4); RED CELL DISTRIBUTION WIDTH 16.0 % (11.6-14.6)
[2025-04-04 06:46] LABS: CREATININE 2.0 mg/dL (0.6-1.0); UREA NITROGEN BLOOD 38 mg/dL (9-23)
[2025-04-04 06:48] LABS: PHOSPHORUS 3.1 mg/dL (2.5-4.9)
[2025-04-04] MEDS: MAGNESIUM 2 G PREMIX 50 ML IV NR (08:49)
[2025-04-04] MEDS ORDERED: NON FORMULARY MED XX SCH (10:00)
[2025-04-04] MEDS ORDERED: IRON SUCROSE COMPLEX 100 MG/5 ML ML IV SCH (10:30)
[2025-04-04] MEDS: IRON SUCROSE COMPLEX 100 MG/5 ML ML IV SCH (10:30)
[2025-04-04] MEDS: CITRIC ACID/SODIUM CITRATE SOLN 30ML UDC PO SCH (14:12)
[2025-04-05] VITALS (70 sets, daily range): BP systolic 93–147; BP diastolic 54–122; PULSE 54–80; RESP 12–22; TEMP 35.2–37; O2SAT 97–100
[2025-04-05 06:28] LABS: BASOPHILS % 0.1 % (0.0-2.0); CREATININE 1.8 mg/dL (0.6-1.0); EOSINOPHILS % 0.3 % (0.0-5.0); HEMATOCRIT. 21.3 % (36.0-48.0); LYMPHOCYTES % 8.3 % (20.0-50.0); MEAN PLATELET VOLUME 10.9 fl (7.4-10.4); MONOCYTES % 5.0 % (2.0-8.0); NEUTROPHILS % 86.3 % (40.0-76.0); PLATELET 73 x1000/uL (130-400); RED BLOOD CELL COUNT 2.32 mill/uL (4.2-5.4); RED CELL DISTRIBUTION WIDTH 15.8 % (11.6-14.6); UREA NITROGEN BLOOD 34 mg/dL (9-23)
[2025-04-05 06:30] LABS: PHOSPHORUS 2.8 mg/dL (2.5-4.9)
[2025-04-05] MEDS ORDERED: POTASSIUM CHLORIDE 40 MEQ in DEXT 5% WATER 230 ML IV ONE (07:30)
[2025-04-05 07:58] LABS: HEMOGLOBIN. 6.9 g/dL (12.0-16.0)
[2025-04-05 09:17] LABS: BG BASE EXCESS -2.6 mmol/L (-2.0-3.0); BG CARBOXYHEMOGLOBIN 1.0 % (0.5-1.5); BG DEOXYHEMOGLOBIN 0.4 % (0.0-5.0); BG FRACTION INSPIRED OXYGEN 30; BG HCO3 ACT 20.5 mmol/L (21.0-28.0); BG METHEMOGLOBIN 0.3 % (0.5-1.5); BG OXYGEN SATURATION 99.6 % (94.0-98.0); BG OXYHEMOGLOBIN 98.3 % (94.0-98.0); BG PCO2 28.0 mmHg (32.0-45.0); BG PEEP (cmH2O) 5.0 cmH2O; BG PH 7.482 (7.350-7.450); BG PO2 174.3 mmHg (83.0-108.0); BG SAMPLE SITE RIGHT RADIAL; BG TIDAL VOLUME(mL) 400.0 mL; BG TOTAL HEMOGLOBIN 7.0 g/dL (12.0-16.0); BG VENT MODE VENT - SIMV; BG VENT RATE 14.0 set
[2025-04-05] MEDS: KCL 20MEQ/100ML PREMIX 100 ML IV SCH (10:16)
[2025-04-05] MEDS ORDERED: ROCURONIUM BROMIDE 10MG/ML VIAL 5ML IV ONE (17:11)
[2025-04-05] MEDS ORDERED: HYDROMORPHONE HCL/PF 1MG/ML INJ ONE (17:16)
[2025-04-05] MEDS ORDERED: DEXTROSE 50% WATER 50ML SYRINGE IV ONE (17:23)
[2025-04-05] MEDS ORDERED: VASOPRESSIN 20 UNIT/ML 1ML ONE (17:23)
[2025-04-05] MEDS ORDERED: GLYCOPYRROLATE 0.2 MG/ML 2ML VIAL ONE (17:28)
[2025-04-05] MEDS ORDERED: EPHEDRINE SULFATE 50MG/ML VIAL ONE (18:03)
[2025-04-05] MEDS ORDERED: EPINEPHRINE 0.1MG/ML (1:10,000) 10ML SYR ONE (18:04)
[2025-04-05] MEDS: PANTOPRAZOLE SODIUM 40 MG/VIAL IV SCH (20:27)
[2025-04-06] VITALS (53 sets, daily range): BP systolic 78–140; BP diastolic 47–94; PULSE 61–82; RESP 12–26; TEMP 36.4–37.3; O2SAT 99–100
[2025-04-06 06:28] LABS: BASOPHILS % 0.2 % (0.0-2.0); EOSINOPHILS % 0.4 % (0.0-5.0); HEMATOCRIT. 23.0 % (36.0-48.0); HEMOGLOBIN. 7.8 g/dL (12.0-16.0); LYMPHOCYTES % 8.6 % (20.0-50.0); MEAN PLATELET VOLUME 10.8 fl (7.4-10.4); MONOCYTES % 4.2 % (2.0-8.0); NEUTROPHILS % 86.6 % (40.0-76.0); PLATELET 70 x1000/uL (130-400); RED BLOOD CELL COUNT 2.59 mill/uL (4.2-5.4); RED CELL DISTRIBUTION WIDTH 15.5 % (11.6-14.6)
[2025-04-06 06:33] LABS: INR 1.0
[2025-04-06 06:44] LABS: CREATININE 1.6 mg/dL (0.6-1.0)
[2025-04-06 06:45] LABS: UREA NITROGEN BLOOD 26 mg/dL (9-23)
[2025-04-06 06:46] LABS: ASPARTATE AMINOTRANSFERASE 192 IU/L (<34)
[2025-04-06 06:47] LABS: BILIRUBIN DIRECT 0.1 mg/dL (<=3.0); BILIRUBIN TOTAL 0.2 mg/dL (0.1-1.0); PHOSPHORUS 2.9 mg/dL (2.5-4.9); PROTEIN TOTAL 5.0 g/dL (6.0-8.3)
[2025-04-06] MEDS: KCL 20MEQ/100ML PREMIX 100 ML IV SCH ×2 (07:56→08:00)
[2025-04-06] MEDS ORDERED: KCL 20MEQ/100ML PREMIX 100 ML IV SCH (08:30)
[2025-04-06 09:07] LABS: BG BASE EXCESS -2.2 mmol/L (-2.0-3.0); BG CARBOXYHEMOGLOBIN 0.7 % (0.5-1.5); BG DEOXYHEMOGLOBIN 1.2 % (0.0-5.0); BG FRACTION INSPIRED OXYGEN 30; BG HCO3 ACT 20.3 mmol/L (21.0-28.0); BG METHEMOGLOBIN 0.3 % (0.5-1.5); BG OXYGEN SATURATION 98.8 % (94.0-98.0); BG OXYHEMOGLOBIN 97.8 % (94.0-98.0); BG PCO2 26.2 mmHg (32.0-45.0); BG PEEP (cmH2O) 5.0 cmH2O; BG PH 7.506 (7.350-7.450); BG PIP 8.0 cmH2O; BG PO2 121.8 mmHg (83.0-108.0); BG SAMPLE SITE RIGHT RADIAL; BG TIDAL VOLUME(mL) 400.0 mL; BG TOTAL HEMOGLOBIN 8.3 g/dL (12.0-16.0); BG VENT MODE VENT - SIMV; BG VENT RATE 14.0 set
[2025-04-06] MEDS: POTASSIUM CHLORIDE 20MEQ/PACKET PO NR (10:25)
[2025-04-06] MEDS: ACETAMINOPHEN 325MG TABLET PO PRN (21:39)
[2025-04-07] VITALS (79 sets, daily range): BP systolic 92–167; BP diastolic 51–91; PULSE 65–87; RESP 14–26; TEMP 36.7–37.2; O2SAT 92–100
[2025-04-07 06:27] LABS: BASOPHILS % 0.2 % (0.0-2.0); EOSINOPHILS % 0.3 % (0.0-5.0); HEMATOCRIT. 24.2 % (36.0-48.0); HEMOGLOBIN. 8.2 g/dL (12.0-16.0); LYMPHOCYTES % 10.4 % (20.0-50.0); MEAN PLATELET VOLUME 10.2 fl (7.4-10.4); MONOCYTES % 5.9 % (2.0-8.0); NEUTROPHILS % 83.2 % (40.0-76.0); PLATELET 77 x1000/uL (130-400); RED BLOOD CELL COUNT 2.74 mill/uL (4.2-5.4); RED CELL DISTRIBUTION WIDTH 15.7 % (11.6-14.6)
[2025-04-07 06:39] LABS: CREATININE 1.5 mg/dL (0.6-1.0)
[2025-04-07 06:40] LABS: UREA NITROGEN BLOOD 20 mg/dL (9-23)
[2025-04-07 06:42] LABS: PHOSPHORUS 2.2 mg/dL (2.5-4.9)
[2025-04-07] MEDS ORDERED: POTASSIUM PHOSPHATE 20 MMOL in DEXT 5% WATER 243.3333 ML IV ONE (09:00)
[2025-04-07 09:02] LABS: BG BASE EXCESS -2.0 mmol/L (-2.0-3.0); BG CARBOXYHEMOGLOBIN 0.3 % (0.5-1.5); BG DEOXYHEMOGLOBIN 0.8 % (0.0-5.0); BG FRACTION INSPIRED OXYGEN 40; BG HCO3 ACT 20.1 mmol/L (21.0-28.0); BG METHEMOGLOBIN 0.3 % (0.5-1.5); BG OXYGEN SATURATION 99.2 % (94.0-98.0); BG OXYHEMOGLOBIN 98.6 % (94.0-98.0); BG PCO2 26.1 mmHg (32.0-45.0); BG PEEP (cmH2O) 5.0 cmH2O; BG PH 7.505 (7.350-7.450); BG PO2 145.4 mmHg (83.0-108.0); BG SAMPLE SITE LEFT RADIAL; BG TIDAL VOLUME(mL) 400.0 mL; BG TOTAL HEMOGLOBIN 10.3 g/dL (12.0-16.0); BG VENT MODE VENT - SIMV; BG VENT RATE 14.0 set
[2025-04-07] MEDS: SODIUM PHOSPHATE 10 MMOL in DEXT 5% WATER 246.6667 ML IV NR (11:07)
[2025-04-07] MEDS: DEXTROSE 50% WATER 50ML SYRINGE IV SCH (16:15)
[2025-04-07] MEDS: DEXTROSE 50% WATER 50ML SYRINGE IV PRN (20:09)
[2025-04-08] VITALS (19 sets, daily range): BP systolic 102–140; BP diastolic 59–86; PULSE 59–78; RESP 16–27; TEMP 36.3–37.1; O2SAT 95–100
[2025-04-08 07:58] LABS: CREATININE 1.3 mg/dL (0.6-1.0); UREA NITROGEN BLOOD 17 mg/dL (9-23)
[2025-04-08 07:59] LABS: HEMATOCRIT. 23.6 % (36.0-48.0); HEMOGLOBIN. 7.8 g/dL (12.0-16.0); MEAN PLATELET VOLUME 9.7 fl (7.4-10.4); PLATELET 74 x1000/uL (130-400); RED BLOOD CELL COUNT 2.65 mill/uL (4.2-5.4); RED CELL DISTRIBUTION WIDTH 15.6 % (11.6-14.6)
[2025-04-08 08:00] LABS: PHOSPHORUS 1.6 mg/dL (2.5-4.9)
[2025-04-08] MEDS ORDERED: POTASSIUM CHLORIDE 40 MEQ in DEXT 5% WATER 230 ML IV ONE (08:30)
[2025-04-08 08:59] LABS: BG BASE EXCESS -2.8 mmol/L (-2.0-3.0); BG CARBOXYHEMOGLOBIN 2.2 % (0.5-1.5); BG DEOXYHEMOGLOBIN 0.5 % (0.0-5.0); BG FRACTION INSPIRED OXYGEN 40; BG HCO3 ACT 19.4 mmol/L (21.0-28.0); BG METHEMOGLOBIN 0.3 % (0.5-1.5); BG OXYGEN SATURATION 99.5 % (94.0-98.0); BG OXYHEMOGLOBIN 97.0 % (94.0-98.0); BG PCO2 24.3 mmHg (32.0-45.0); BG PEEP (cmH2O) 5.0 cmH2O; BG PH 7.521 (7.350-7.450); BG PO2 138.8 mmHg (83.0-108.0); BG SAMPLE SITE RIGHT BRACHIAL; BG TIDAL VOLUME(mL) 400.0 mL; BG TOTAL HEMOGLOBIN 7.7 g/dL (12.0-16.0); BG VENT MODE VENT - SIMV; BG VENT RATE 14.0 set
[2025-04-08] MEDS: POTASSIUM CHLORIDE 20MEQ/PACKET PO NR (10:02)
[2025-04-08] MEDS: KCL 20MEQ/100ML X 2 FOR TOTAL KCL 40MEQ/200ML IV SCH (10:25)
[2025-04-08] MEDS: POTASSIUM PHOSPHATE 20 MMOL in DEXT 5% WATER 243.3333 ML IV NR (11:53)
[2025-04-08] MEDS: CALCIUM GLUCONATE 100MG/ML 10ML VIAL IV NR (11:53)
[2025-04-08] MEDS: POTASSIUM CHLORIDE 20MEQ TABLET SR PO NR (13:31)
[2025-04-08 20:45] LABS: LYMPHOCYTES % MANUAL 10.0 % (20.0-60.0); MONOCYTES % MANUAL 8.0 % (2.0-8.0); NEUTROPHILS % MANUAL 82.0 % (45.0-75.0)
[2025-04-08 20:46] LABS: PLATELET ESTIMATE NORMAL
[2025-04-09] VITALS (23 sets, daily range): BP systolic 103–143; BP diastolic 59–80; PULSE 65–89; RESP 16–26; TEMP 36.2–37.2; O2SAT 96–100
[2025-04-09 08:02] LABS: HEMATOCRIT. 24.9 % (36.0-48.0); HEMOGLOBIN. 8.4 g/dL (12.0-16.0); MEAN PLATELET VOLUME 9.6 fl (7.4-10.4); PLATELET 68 x1000/uL (130-400); RED BLOOD CELL COUNT 2.81 mill/uL (4.2-5.4); RED CELL DISTRIBUTION WIDTH 16.0 % (11.6-14.6)
[2025-04-09 08:33] LABS: CREATININE 1.2 mg/dL (0.6-1.0)
[2025-04-09 08:34] LABS: UREA NITROGEN BLOOD 15 mg/dL (9-23)
[2025-04-09 08:36] LABS: PHOSPHORUS 2.1 mg/dL (2.5-4.9)
[2025-04-09] MEDS: FAMOTIDINE 20MG/2ML VIAL IV SCH (09:40)
[2025-04-09] MEDS: MAGNESIUM 2 G PREMIX 50 ML IV SCH (11:14)
[2025-04-09] MEDS: KCL 20MEQ/100ML PREMIX 100 ML IV SCH (11:15)
[2025-04-09 14:27] LABS: BASOPHILS % MANUAL 1.0 % (0.0-2.0); LYMPHOCYTES % MANUAL 6.0 % (20.0-60.0); MONOCYTES % MANUAL 10.0 % (2.0-8.0); NEUTROPHILS % MANUAL 83.0 % (45.0-75.0); PLATELET ESTIMATE DECREASED
[2025-04-10] VITALS (21 sets, daily range): BP systolic 116–150; BP diastolic 61–89; PULSE 74–94; RESP 14–27; TEMP 36.3–37.6; O2SAT 94–100
[2025-04-10 05:39] LABS: CREATININE 1.3 mg/dL (0.6-1.0); UREA NITROGEN BLOOD 16 mg/dL (9-23)
[2025-04-10 05:41] LABS: PHOSPHORUS 1.8 mg/dL (2.5-4.9)
[2025-04-10] MEDS: SODIUM PHOSPHATE 30 MMOL in DEXT 5% WATER 490 ML IV NR (13:38)
[2025-04-10] MEDS: IPRATROPIUM/ALBUTEROL 0.5-3(2.5)MG/3ML NEB HHN SCH (15:13)
[2025-04-11] VITALS (26 sets, daily range): BP systolic 112–144; BP diastolic 66–92; PULSE 81–100; RESP 16–28; TEMP 36.2–37.7; O2SAT 97–100
[2025-04-11 06:15] LABS: CREATININE 1.5 mg/dL (0.6-1.0)
[2025-04-11 06:16] LABS: UREA NITROGEN BLOOD 18 mg/dL (9-23)
[2025-04-11 06:18] LABS: PHOSPHORUS 3.7 mg/dL (2.5-4.9)
[2025-04-11 06:31] LABS: HEMATOCRIT. 23.3 % (36.0-48.0); HEMOGLOBIN. 7.7 g/dL (12.0-16.0); MEAN PLATELET VOLUME 9.2 fl (7.4-10.4); PLATELET 70 x1000/uL (130-400); RED BLOOD CELL COUNT 2.65 mill/uL (4.2-5.4); RED CELL DISTRIBUTION WIDTH 16.2 % (11.6-14.6)
[2025-04-11] MEDS: POTASSIUM CHLORIDE 20MEQ/PACKET PO SCH (10:59)
[2025-04-11 11:06] LABS: BAND% 18.0 % (1.0-6.0); LYMPHOCYTES % MANUAL 11.0 % (20.0-60.0); MONOCYTES % MANUAL 3.0 % (2.0-8.0); NEUTROPHILS % MANUAL 68.0 % (45.0-75.0); PLATELET ESTIMATE DECREASED
[2025-04-12] VITALS (25 sets, daily range): BP systolic 106–151; BP diastolic 58–80; PULSE 70–88; RESP 15–25; TEMP 36.7–37.7; O2SAT 97–100
[2025-04-12 06:23] LABS: T4 FREE 1.4 ng/dL (0.89-1.76)
[2025-04-12 14:08] LABS: CREATININE 1.4 mg/dL (0.6-1.0); UREA NITROGEN BLOOD 21 mg/dL (9-23)
[2025-04-12] MEDS: KCL 20MEQ/100ML PREMIX 100 ML IV SCH (15:51)
[2025-04-13] VITALS (23 sets, daily range): BP systolic 115–142; BP diastolic 52–82; PULSE 71–95; RESP 16–37; TEMP 36.6–38.2; O2SAT 98–100
[2025-04-13 08:01] LABS: CREATININE 1.4 mg/dL (0.6-1.0)
[2025-04-13 08:02] LABS: UREA NITROGEN BLOOD 21 mg/dL (9-23)
[2025-04-14] VITALS (22 sets, daily range): BP systolic 109–147; BP diastolic 59–76; PULSE 76–92; RESP 15–27; TEMP 37.6–38.4; O2SAT 98–100
[2025-04-14] MEDS: CEFTRIAXONE 2GM/50ML 50 ML IV SCH (22:16)
[2025-04-15] VITALS (23 sets, daily range): BP systolic 113–162; BP diastolic 62–86; PULSE 70–114; RESP 15–31; TEMP 36.4–37.9; O2SAT 98–100
[2025-04-15] MEDS: HYDRALAZINE 20MG/ML VIAL IV PRN (01:55)
[2025-04-15 07:48] LABS: MEAN PLATELET VOLUME 8.5 fl (7.4-10.4); PLATELET 104 x1000/uL (130-400); RED BLOOD CELL COUNT 2.22 mill/uL (4.2-5.4); RED CELL DISTRIBUTION WIDTH 17.0 % (11.6-14.6)
[2025-04-15 08:13] LABS: CREATININE 1.5 mg/dL (0.6-1.0); UREA NITROGEN BLOOD 24.0 mg/dL (9-23)
[2025-04-15] MEDS ORDERED: POTASSIUM CHLORIDE 20MEQ/PACKET PO ONE (08:15)
[2025-04-15 08:17] LABS: HEMATOCRIT. 20.3 % (36.0-48.0); HEMOGLOBIN. 6.4 g/dL (12.0-16.0)
[2025-04-15 10:05] LABS: BAND% 31.0 % (1.0-6.0); LYMPHOCYTES % MANUAL 8.0 % (20.0-60.0); MONOCYTES % MANUAL 2.0 % (2.0-8.0); NEUTROPHILS % MANUAL 59.0 % (45.0-75.0)
[2025-04-15 10:08] LABS: PLATELET ESTIMATE DECREASED
[2025-04-15] MEDS: DEXT 5%/0.45% NACL 1000ML 1,000 ML IV SCH (21:14)
[2025-04-16] VITALS (22 sets, daily range): BP systolic 105–127; BP diastolic 59–90; PULSE 61–87; RESP 14–24; TEMP 36.7–37.1; O2SAT 97–100
[2025-04-16] MEDS: MICAFUNGIN 150 MG in SODIUM CHLORIDE 0.9% 100 ML IV SCH (18:25)
[2025-04-17] VITALS (29 sets, daily range): BP systolic 105–149; BP diastolic 57–81; PULSE 54–80; RESP 12–27; TEMP 36.3–37.4; O2SAT 79–100
[2025-04-17] MEDS: IPRATROPIUM/ALBUTEROL 0.5-3(2.5)MG/3ML NEB HHN NR (05:20)
[2025-04-17] MEDS: PANTOPRAZOLE SODIUM 40 MG/VIAL IV SCH (09:37)
[2025-04-17 15:19] LABS: BASOPHILS % 0.2 % (0.0-2.0); EOSINOPHILS % 0.3 % (0.0-5.0); LYMPHOCYTES % 7.4 % (20.0-50.0); MEAN PLATELET VOLUME 8.8 fl (7.4-10.4); MONOCYTES % 4.2 % (2.0-8.0); NEUTROPHILS % 87.9 % (40.0-76.0); PLATELET 128 x1000/uL (130-400); RED BLOOD CELL COUNT 2.34 mill/uL (4.2-5.4); RED CELL DISTRIBUTION WIDTH 17.9 % (11.6-14.6)
[2025-04-17 15:30] LABS: CREATININE 1.2 mg/dL (0.6-1.0)
[2025-04-17 15:31] LABS: UREA NITROGEN BLOOD 17.0 mg/dL (9-23)
[2025-04-17 16:22] LABS: HEMOGLOBIN. 6.7 g/dL (12.0-16.0)
[2025-04-17 16:23] LABS: HEMATOCRIT. 21.7 % (36.0-48.0)
[2025-04-18] VITALS (24 sets, daily range): BP systolic 119–164; BP diastolic 55–101; PULSE 54–70; RESP 14–22; TEMP 36.4–36.9; O2SAT 99–100
[2025-04-18 06:01] LABS: CREATININE 1.2 mg/dL (0.6-1.0)
[2025-04-18 06:02] LABS: UREA NITROGEN BLOOD 16.0 mg/dL (9-23)
[2025-04-18 06:05] LABS: BASOPHILS % 0.2 % (0.0-2.0); EOSINOPHILS % 0.1 % (0.0-5.0); HEMATOCRIT. 30.1 % (36.0-48.0); LYMPHOCYTES % 7.8 % (20.0-50.0); MEAN PLATELET VOLUME 8.9 fl (7.4-10.4); MONOCYTES % 5.3 % (2.0-8.0); NEUTROPHILS % 86.6 % (40.0-76.0); PLATELET 185 x1000/uL (130-400); RED BLOOD CELL COUNT 3.32 mill/uL (4.2-5.4); RED CELL DISTRIBUTION WIDTH 16.7 % (11.6-14.6)
[2025-04-18 07:05] LABS: HEMOGLOBIN. 9.6 g/dL (12.0-16.0)
[2025-04-18] MEDS: POTASSIUM CHLORIDE 20MEQ TABLET SR PO NR (17:44)
[2025-04-18 20:57] LABS: PHOSPHORUS 2.1 mg/dL (2.5-4.9)
[2025-04-19] VITALS (24 sets, daily range): BP systolic 104–160; BP diastolic 63–90; PULSE 57–75; RESP 14–34; TEMP 31.1–37.1; O2SAT 97–100
[2025-04-19 09:00] LABS: PLATELET 201 x1000/uL (130-400); RED BLOOD CELL COUNT 3.05 mill/uL (4.2-5.4); RED CELL DISTRIBUTION WIDTH 16.9 % (11.6-14.6)
[2025-04-19 09:04] LABS: CREATININE 1.1 mg/dL (0.6-1.0)
[2025-04-19 09:05] LABS: UREA NITROGEN BLOOD 10.0 mg/dL (9-23)
[2025-04-19] MEDS: MAGNESIUM 2 G PREMIX 50 ML IV SCH (12:39)
[2025-04-20] VITALS (25 sets, daily range): BP systolic 123–156; BP diastolic 66–95; PULSE 60–86; RESP 14–29; TEMP 36.3–37.6; O2SAT 96–100
[2025-04-20 07:01] LABS: BASOPHILS % 0.3 % (0.0-2.0); EOSINOPHILS % 0.1 % (0.0-5.0); HEMATOCRIT. 27.3 % (36.0-48.0); HEMOGLOBIN. 8.7 g/dL (12.0-16.0); LYMPHOCYTES % 8.4 % (20.0-50.0); MEAN PLATELET VOLUME 9.0 fl (7.4-10.4); MONOCYTES % 6.4 % (2.0-8.0); NEUTROPHILS % 84.8 % (40.0-76.0); PLATELET 231 x1000/uL (130-400); RED BLOOD CELL COUNT 3.01 mill/uL (4.2-5.4); RED CELL DISTRIBUTION WIDTH 17.2 % (11.6-14.6)
[2025-04-20 07:09] LABS: CREATININE 1.0 mg/dL (0.6-1.0); UREA NITROGEN BLOOD 10 mg/dL (9-23)
[2025-04-20 07:11] LABS: PHOSPHORUS 1.5 mg/dL (2.5-4.9)
[2025-04-20 09:40] LABS: BG BASE EXCESS -7.3 mmol/L (-2.0-3.0); BG CARBOXYHEMOGLOBIN 0.7 % (0.5-1.5); BG DEOXYHEMOGLOBIN 1.7 % (0.0-5.0); BG FRACTION INSPIRED OXYGEN 30; BG HCO3 ACT 16.0 mmol/L (21.0-28.0); BG METHEMOGLOBIN 0.3 % (0.5-1.5); BG OXYGEN SATURATION 98.3 % (94.0-98.0); BG OXYHEMOGLOBIN 97.3 % (94.0-98.0); BG PCO2 24.9 mmHg (32.0-45.0); BG PEEP (cmH2O) 5.0 cmH2O; BG PH 7.425 (7.350-7.450); BG PO2 107.5 mmHg (83.0-108.0); BG SAMPLE SITE RIGHT RADIAL; BG TIDAL VOLUME(mL) 400.0 mL; BG TOTAL HEMOGLOBIN 8.8 g/dL (12.0-16.0); BG VENT MODE VENT - SIMV; BG VENT RATE 10.0 set
[2025-04-20] MEDS: IRON SUCROSE COMPLEX 100 MG/5 ML ML IV SCH (10:14)
[2025-04-20] MEDS: POTASSIUM CHLORIDE 20MEQ/PACKET PO SCH (10:27)
[2025-04-20] MEDS: CITRIC ACID/SODIUM CITRATE SOLN 30ML UDC PO SCH (13:28)
[2025-04-20] MEDS: POTASSIUM PHOSPHATE 30 MMOL in DEXT 5% WATER 490 ML IV SCH (13:36)
[2025-04-21] VITALS (24 sets, daily range): BP systolic 107–128; BP diastolic 56–73; PULSE 62–78; RESP 13–24; TEMP 36.4–37.5; O2SAT 100
[2025-04-21 05:33] LABS: HEMATOCRIT. 23.9 % (36.0-48.0); HEMOGLOBIN. 7.8 g/dL (12.0-16.0); MEAN PLATELET VOLUME 8.7 fl (7.4-10.4); PLATELET 287 x1000/uL (130-400); RED BLOOD CELL COUNT 2.66 mill/uL (4.2-5.4); RED CELL DISTRIBUTION WIDTH 16.6 % (11.6-14.6)
[2025-04-21 06:05] LABS: CREATININE 0.9 mg/dL (0.6-1.0); UREA NITROGEN BLOOD 8 mg/dL (9-23)
[2025-04-21 06:08] LABS: PHOSPHORUS 2.4 mg/dL (2.5-4.9)
[2025-04-21 14:31] LABS: BAND% 11.0 % (1.0-6.0); EOSINOPHILS % MANUAL 1.0 % (0.0-5.0); LYMPHOCYTES % MANUAL 13.0 % (20.0-60.0); MONOCYTES % MANUAL 7.0 % (2.0-8.0); NEUTROPHILS % MANUAL 68.0 % (45.0-75.0); PLATELET ESTIMATE NORMAL
[2025-04-22] VITALS (23 sets, daily range): BP systolic 108–139; BP diastolic 60–78; PULSE 70–81; RESP 17–25; TEMP 36.6–37.4; O2SAT 99–100
[2025-04-22] MEDS: BLOOD SUGAR DIAGNOSTIC STRIP TEST SCH (18:00)
[2025-04-22] MEDS ORDERED: CEFTRIAXONE 2GM/50ML 50 ML IV SCH (22:00)
[2025-04-22] MEDS: AMPICILLIN SOD/SULBACTAM NA 6 G in SODIUM CHLORIDE 0.9% 200 ML IV SCH (22:24)
[2025-04-22] MEDS: DEXT 5%/0.45% NACL 1000ML 1,000 ML IV ONE (23:31)
[2025-04-22] MEDS: METOCLOPRAMIDE HCL 10MG/2ML VIAL IV PRN (23:31)
[2025-04-23] VITALS (21 sets, daily range): BP systolic 95–139; BP diastolic 49–81; PULSE 55–83; RESP 11–21; TEMP 36.4–36.8; O2SAT 98–100
[2025-04-23 08:49] LABS: HEMATOCRIT. 26.3 % (36.0-48.0); HEMOGLOBIN. 8.2 g/dL (12.0-16.0); MEAN PLATELET VOLUME 8.3 fl (7.4-10.4); PLATELET 337 x1000/uL (130-400); RED BLOOD CELL COUNT 2.83 mill/uL (4.2-5.4); RED CELL DISTRIBUTION WIDTH 17.6 % (11.6-14.6)
[2025-04-23 08:59] LABS: CREATININE 0.9 mg/dL (0.6-1.0)
[2025-04-23 09:01] LABS: UREA NITROGEN BLOOD 9 mg/dL (9-23)
[2025-04-23 09:03] LABS: PHOSPHORUS 1.8 mg/dL (2.5-4.9)
[2025-04-23 11:08] LABS: BG BASE EXCESS 2.0 mmol/L (-2.0-3.0); BG CARBOXYHEMOGLOBIN 0.6 % (0.5-1.5); BG DEOXYHEMOGLOBIN 0.9 % (0.0-5.0); BG FRACTION INSPIRED OXYGEN 30; BG HCO3 ACT 24.9 mmol/L (21.0-28.0); BG METHEMOGLOBIN 0.3 % (0.5-1.5); BG OXYGEN SATURATION 99.1 % (94.0-98.0); BG OXYHEMOGLOBIN 98.2 % (94.0-98.0); BG PCO2 31.9 mmHg (32.0-45.0); BG PEEP (cmH2O) 5.0 cmH2O; BG PH 7.511 (7.350-7.450); BG PO2 141.8 mmHg (83.0-108.0); BG SAMPLE SITE RIGHT RADIAL; BG TIDAL VOLUME(mL) 400.0 mL; BG TOTAL HEMOGLOBIN 7.6 g/dL (12.0-16.0); BG VENT MODE VENT - SIMV; BG VENT RATE 10.0 set
[2025-04-23 14:09] LABS: BAND% 11.0 % (1.0-6.0); LYMPHOCYTES % MANUAL 11.0 % (20.0-60.0); MONOCYTES % MANUAL 5.0 % (2.0-8.0); NEUTROPHILS % MANUAL 73.0 % (45.0-75.0); NUCLEATED RED BLOOD CELLS 3 /100 WBC; PLATELET ESTIMATE NORMAL
[2025-04-23] MEDS: MAGNESIUM 1 G PREMIX 100 ML IV SCH (16:07)
[2025-04-23] MEDS: SODIUM PHOSPHATE 20 MMOL in DEXT 5% WATER 243.3333 ML IV SCH (17:34)
[2025-04-23] MEDS: DEXTROSE 5% WATER 1,000 ML IV SCH (20:57)
[2025-04-24] VITALS (21 sets, daily range): BP systolic 109–150; BP diastolic 58–78; PULSE 55–68; RESP 13–31; TEMP 36.3–36.8; O2SAT 80–100
[2025-04-24 07:35] LABS: BASOPHILS % 0.5 % (0.0-2.0); EOSINOPHILS % 0.7 % (0.0-5.0); HEMATOCRIT. 26.9 % (36.0-48.0); HEMOGLOBIN. 8.4 g/dL (12.0-16.0); LYMPHOCYTES % 13.8 % (20.0-50.0); MEAN PLATELET VOLUME 8.3 fl (7.4-10.4); MONOCYTES % 8.5 % (2.0-8.0); NEUTROPHILS % 76.5 % (40.0-76.0); PLATELET 341 x1000/uL (130-400); RED BLOOD CELL COUNT 2.82 mill/uL (4.2-5.4); RED CELL DISTRIBUTION WIDTH 18.5 % (11.6-14.6)
[2025-04-24 07:53] LABS: CREATININE 0.8 mg/dL (0.6-1.0); UREA NITROGEN BLOOD 8 mg/dL (9-23)
[2025-04-24 07:55] LABS: PHOSPHORUS 3.3 mg/dL (2.5-4.9)
[2025-04-24 10:45] LABS: BG BASE EXCESS 0.9 mmol/L (-2.0-3.0); BG CARBOXYHEMOGLOBIN 0.9 % (0.5-1.5); BG DEOXYHEMOGLOBIN 1.2 % (0.0-5.0); BG FRACTION INSPIRED OXYGEN 30; BG HCO3 ACT 24.5 mmol/L (21.0-28.0); BG METHEMOGLOBIN 0.3 % (0.5-1.5); BG OXYGEN SATURATION 98.8 % (94.0-98.0); BG OXYHEMOGLOBIN 97.6 % (94.0-98.0); BG PCO2 34.3 mmHg (32.0-45.0); BG PEEP (cmH2O) 5.0 cmH2O; BG PH 7.471 (7.350-7.450); BG PO2 114.5 mmHg (83.0-108.0); BG SAMPLE SITE RIGHT RADIAL; BG TIDAL VOLUME(mL) 350.0 mL; BG TOTAL HEMOGLOBIN 8.3 g/dL (12.0-16.0); BG VENT MODE VENT - SIMV; BG VENT RATE 8.0 set
[2025-04-25] VITALS (25 sets, daily range): BP systolic 111–149; BP diastolic 60–75; PULSE 61–90; RESP 7–29; TEMP 36.2–37.1; O2SAT 97–100
[2025-04-25 06:24] LABS: CREATININE 0.9 mg/dL (0.6-1.0); UREA NITROGEN BLOOD < 5 mg/dL (9-23)
[2025-04-25 09:20] LABS: BG BASE EXCESS -1.0 mmol/L (-2.0-3.0); BG CARBOXYHEMOGLOBIN 0.2 % (0.5-1.5); BG DEOXYHEMOGLOBIN 1.7 % (0.0-5.0); BG FRACTION INSPIRED OXYGEN 30; BG HCO3 ACT 22.0 mmol/L (21.0-28.0); BG METHEMOGLOBIN 0.3 % (0.5-1.5); BG OXYGEN SATURATION 98.3 % (94.0-98.0); BG OXYHEMOGLOBIN 97.8 % (94.0-98.0); BG PCO2 30.3 mmHg (32.0-45.0); BG PEEP (cmH2O) 5.0 cmH2O; BG PH 7.479 (7.350-7.450); BG PO2 105.6 mmHg (83.0-108.0); BG SAMPLE SITE RIGHT RADIAL; BG TIDAL VOLUME(mL) 300.0 mL; BG TOTAL HEMOGLOBIN 9.2 g/dL (12.0-16.0); BG VENT MODE VENT - SIMV; BG VENT RATE 8.0 set
[2025-04-25 09:59] LABS: BASOPHILS % 0.3 % (0.0-2.0); EOSINOPHILS % 0.7 % (0.0-5.0); HEMATOCRIT. 30.4 % (36.0-48.0); HEMOGLOBIN. 9.7 g/dL (12.0-16.0); LYMPHOCYTES % 15.7 % (20.0-50.0); MEAN PLATELET VOLUME 8.6 fl (7.4-10.4); MONOCYTES % 7.0 % (2.0-8.0); NEUTROPHILS % 76.3 % (40.0-76.0); PLATELET 324 x1000/uL (130-400); RED BLOOD CELL COUNT 3.24 mill/uL (4.2-5.4); RED CELL DISTRIBUTION WIDTH 18.0 % (11.6-14.6)
[2025-04-26] VITALS (21 sets, daily range): BP systolic 112–162; BP diastolic 54–77; PULSE 63–76; RESP 8–22; TEMP 36.4–36.9; O2SAT 97–100
[2025-04-26 05:51] LABS: CREATININE 0.9 mg/dL (0.6-1.0)
[2025-04-26 05:52] LABS: UREA NITROGEN BLOOD 7 mg/dL (9-23)
[2025-04-26 05:54] LABS: PHOSPHORUS 2.8 mg/dL (2.5-4.9)
[2025-04-26 05:58] LABS: BASOPHILS % 0.4 % (0.0-2.0); EOSINOPHILS % 0.6 % (0.0-5.0); HEMATOCRIT. 27.8 % (36.0-48.0); HEMOGLOBIN. 8.9 g/dL (12.0-16.0); LYMPHOCYTES % 20.6 % (20.0-50.0); MEAN PLATELET VOLUME 8.7 fl (7.4-10.4); MONOCYTES % 8.6 % (2.0-8.0); NEUTROPHILS % 69.8 % (40.0-76.0); PLATELET 354 x1000/uL (130-400); RED BLOOD CELL COUNT 2.97 mill/uL (4.2-5.4); RED CELL DISTRIBUTION WIDTH 17.9 % (11.6-14.6)
[2025-04-26] MEDS: POTASSIUM CHLORIDE 20MEQ/PACKET PO SCH (11:25)
[2025-04-26] MEDS: MAGNESIUM 2 G PREMIX 50 ML IV ONE (11:25)
[2025-04-27] VITALS (22 sets, daily range): BP systolic 116–164; BP diastolic 59–95; PULSE 62–95; RESP 14–27; TEMP 36.7–37.3; O2SAT 98–100
[2025-04-27 06:55] LABS: BASOPHILS % 0.4 % (0.0-2.0); EOSINOPHILS % 0.7 % (0.0-5.0); HEMATOCRIT. 27.6 % (36.0-48.0); HEMOGLOBIN. 8.6 g/dL (12.0-16.0); LYMPHOCYTES % 19.6 % (20.0-50.0); MEAN PLATELET VOLUME 8.8 fl (7.4-10.4); MONOCYTES % 9.6 % (2.0-8.0); NEUTROPHILS % 69.7 % (40.0-76.0); PLATELET 358 x1000/uL (130-400); RED BLOOD CELL COUNT 2.93 mill/uL (4.2-5.4); RED CELL DISTRIBUTION WIDTH 19.2 % (11.6-14.6)
[2025-04-27 07:01] LABS: CREATININE 0.9 mg/dL (0.6-1.0); UREA NITROGEN BLOOD 9 mg/dL (9-23)
[2025-04-27 07:03] LABS: PHOSPHORUS 2.1 mg/dL (2.5-4.9)
[2025-04-27] MEDS: POTASSIUM PHOSPHATE 20 MMOL in DEXT 5% WATER 243.3333 ML IV NR (12:04)
== END 2025-04-27 20:42 | DRG 3 ==
LOC: ER 22:16 → CVICU 03-25 00:22 → EDBEDREQSVC 03-25 00:25 → EDBEDREQTM 03-25 00:25 → EDBEDREQ 03-25 00:25 → EDBEDREQDT 03-25 00:25 → ENRESERV 03-25 00:38 → 5EST 04-07 22:14
PROVIDERS: ADMIT Internal Medicine; ATTEND Internal Medicine
PROC: 5A1955Z Respiratory Ventilation, Greater than 96 Consecutive Hours (ICD-10-PCS; principal; 2025-03-25)
PROC: 0BH17EZ Insertion of Endotracheal Airway into Trachea, Via Natural or Artificial Opening (ICD-10-PCS; 2025-03-25)
PROC: 5A1D70Z Performance of Urinary Filtration, Intermittent, Less than 6 Hours Per Day (ICD-10-PCS; 2025-03-25)
PROC: 5A1D70Z Performance of Urinary Filtration, Intermittent, Less than 6 Hours Per Day (ICD-10-PCS; 2025-03-27)
PROC: 4A00X4Z Measurement of Central Nervous Electrical Activity, External Approach (ICD-10-PCS; 2025-03-28)
PROC: 30233N1 Transfusion of Nonautologous Red Blood Cells into Peripheral Vein, Percutaneous Approach (ICD-10-PCS; 2025-03-31)
PROC: 05HY33Z Insertion of Infusion Device into Upper Vein, Percutaneous Approach (ICD-10-PCS; 2025-04-03)
PROC: B54NZZA Ultrasonography of Left Upper Extremity Veins, Guidance (ICD-10-PCS; 2025-04-03)
PROC: 0B110F4 Bypass Trachea to Cutaneous with Tracheostomy Device, Open Approach (ICD-10-PCS; 2025-04-05)
PROC: 0GBJ0ZZ Excision of Thyroid Gland Isthmus, Open Approach (ICD-10-PCS; 2025-04-05)
PROC: 0DH63UZ Insertion of Feeding Device into Stomach, Percutaneous Approach (ICD-10-PCS; 2025-04-06)
DX: A41.51 Sepsis due to Escherichia coli [E. coli] (principal); G93.41 Metabolic encephalopathy; E03.5 Myxedema coma; J96.01 Acute respiratory failure with hypoxia; N17.0 Acute kidney failure with tubular necrosis; R65.21 Severe sepsis with septic shock; J18.9 Pneumonia, unspecified organism; G92.8 Other toxic encephalopathy; I21.A1 Myocardial infarction type 2; N18.6 End stage renal disease; J96.21 Acute and chronic respiratory failure with hypoxia; E72.20 Disorder of urea cycle metabolism, unspecified; E87.0 Hyperosmolality and hypernatremia; E87.20 Acidosis, unspecified; N39.0 Urinary tract infection, site not specified; M62.82 Rhabdomyolysis; N25.81 Secondary hyperparathyroidism of renal origin; D62 Acute posthemorrhagic anemia; E46 Unspecified protein-calorie malnutrition; Z99.11 Dependence on respirator [ventilator] status; I12.0 Hypertensive chronic kidney disease with stage 5 chronic kidney disease or end stage renal disease; E87.3 Alkalosis; E27.40 Unspecified adrenocortical insufficiency; E83.41 Hypermagnesemia; E83.51 Hypocalcemia; E87.5 Hyperkalemia; E87.8 Other disorders of electrolyte and fluid balance, not elsewhere classified; D69.6 Thrombocytopenia, unspecified; G93.89 Other specified disorders of brain; I70.0 Atherosclerosis of aorta; L89.216 Pressure-induced deep tissue damage of right hip; N20.0 Calculus of kidney; B96.1 Klebsiella pneumoniae [K. pneumoniae] as the cause of diseases classified elsewhere; E53.8 Deficiency of other specified B group vitamins; E87.6 Hypokalemia; R00.1 Bradycardia, unspecified; I25.10 Atherosclerotic heart disease of native coronary artery without angina pectoris; E83.42 Hypomagnesemia; E83.39 Other disorders of phosphorus metabolism; R73.9 Hyperglycemia, unspecified; R62.7 Adult failure to thrive; D50.9 Iron deficiency anemia, unspecified; D75.829 Heparin-induced thrombocytopenia, unspecified; D63.1 Anemia in chronic kidney disease; R13.12 Dysphagia, oropharyngeal phase; Z68.30 Body mass index [BMI] 30.0-30.9, adult; Z99.2 Dependence on renal dialysis; Z99.3 Dependence on wheelchair; Z79.899 Other long term (current) drug therapy; Z88.2 Allergy status to sulfonamides; Z79.82 Long term (current) use of aspirin; Z68.26 Body mass index [BMI] 26.0-26.9, adult; Z79.02 Long term (current) use of antithrombotics/antiplatelets; Z79.4 Long term (current) use of insulin
CPT/HCPCS: 31500; 31720; 36415; 36573; 36600; 71045; 74018; 74176; 76700; 76770; 80048; 80061; 80076; 80202; 80305; 80307; 80329; 81003; 82024; 82040; 82140; 82248; 82270; 82306; 82330; 82375; 82533; 82550; 82553; 82570; 82607; 82728; 82746; 82805; 82962; 83036; 83540; 83550; 83605; 83735; 83880; 83930; 83935; 83970; 84100; 84132; 84145; 84295; 84300; 84439; 84443; 84480; 84484; 84540; 85014; 85018; 85025; 85027; 85044; 85049; 86022; 86376; 86705; 86709; 86850; 86900; 86920; 87070; 87077; 87106; 87186; 87340; 90935; 93005; 93306; 93970; 94002; 94003; 94070; 94640; 94664; 94760; 95816; 98960; 99285; A4606; C1725; C1892; J0295; J0360; J0612; J0696; J0885; J1171; J1265; J1308; J1644; J1720; J1815; J2003; J2248; J2250; J2371; J2470; J2543; J2704; J2765; J3010; J3373; J3475; J3480; J3490; J7030; J7040; J7050; J7060; J7070; P9016